=== PATIENT | male | born 1955 | race Caucasian/White ===

== ENCOUNTER 2016-10-17 03:18 | Observation (INO) | payer BC ==
--- NOTE | ~2016-10-17 | DS ---
Discharge Summary [address] [place]. [address] NAME: DONA PEARSON : 55 STATUS : DIS [place] PAT#: [id number] AGE: 61 ADM/REG DATE : 10/17/16 MR#: [id number] REPORT SERV DATE: 10/20/16 DICTATED BY: ERIN MENDOZA DATE: 10/19/16 REPORT STATUS : Draft TRANSCRIBED BY: MODL DATE: 10/19/16 ADMISSION DATE: 10/17/2016 DISCHARGE DATE: 10/19/2016 REASON FOR ADMISSION: Neutropenic fever. HPI: Please refer Dr. Lopez's history and physical dated 10/17/2016 for complete details on the patient's admission. The patient was admitted to the Hospitalist Service for management of neutropenic fever. HOSPITAL COURSE: The patient had an uncomplicated hospital course. He was admitted to the Hospitalist Service for neutropenic fever. The patient has known stage IV prostate cancer followed closely by Dr. Ketan Byrnes. He was started on chemotherapy for his first dose. He presented to the hospital with a neutropenic fever. He was started on broad-spectrum antibiotics including vancomycin, cefepime, along with IV fluids for his acute kidney injury. Blood cultures were obtained. There were no growth to date. Urinalysis was unremarkable. Chest x-ray did not reveal any pulmonary infection. Throughout the hospitalization, the patient remained nontoxic and was not ill appearing. He was back to his usual state. He had been ambulating and eating fine. On day three, his absolute neutrophil count had increased to as high as 530. He has been afebrile for about 30+ hours, and is not ill appearing. His hypotension had mostly resolved. He has had some normotensive episodes along with some normal low blood pressure. He has been ambulating without any symptoms. Denies any dizziness, lightheadedness. He has reached maximal hospitalization. He will be discharged today if okay by Dr. Ketan Byrnes to follow up with Dr. Byrnes on 10/30/2016 for his next round of chemotherapy. So far his neutropenic fever has not proven to be any concern for bacteria. The patient will be discharged in stable condition. DISCHARGE DIAGNOSES: 1. Neutropenic fever. 2. No sepsis. 3. Acute kidney injury secondary to dehydration, now resolved. 4. Stage IV prostate cancer, currently on chemotherapy followed by Dr. Ketan Byrnes. PROCEDURES: Include chest x-ray. DISCHARGE MEDICATIONS: Include vitamin B12, fish oil, Prilosec 20 mg daily, azilsartan/chlorthalidone 40/25 half tab daily. He is to hold this and restart in one week. Taxotere administered by Dr. Ketan Byrnes. FOLLOWUP: The patient will follow up Dr. Ketan Byrnes in 2 to 3 days for his next dose of Taxotere. DICTATED BY: Erin Mendoza MD Discharge Summary [address] [address] NAME: DONA PEARSON : 55 STATUS : DIS [place] PAT#: [id number] AGE: 61 ADM/REG DATE : 10/17/16 MR#: [id number] REPORT SERV DATE: 10/20/16 DICTATED BY: ERIN MENDOZA DATE: 10/19/16 REPORT STATUS : Draft TRANSCRIBED BY: MODTrent DATE: 10/19/16 RALPH/MARLY Erin Mendoza MD / [id number] CC: MD Librado Chavez M.D. Davey B. Daniel, M.D.
--- NOTE | ~2016-10-17 | HP ---
History And Physical [id number] [place]. [address] NAME: DONA CAI : 55 STATUS : ADM [place] PAT#: [id number] AGE: 61 ADM/REG DATE : 10/17/16 MR#: [id number] REPORT SERV DATE: 10/17/16 DICTATED BY: ARMAND MURGUIA DATE: 10/17/16 REPORT STATUS : Draft TRANSCRIBED BY: MODL DATE: 10/17/16 DATE OF ADMISSION: 10/17/2016 CHIEF COMPLAINT: Fever, chills. HISTORY OF PRESENT ILLNESS: This is a 61-year-old male with a history of prostate cancer diagnosed in April of 2016 and currently under chemotherapy under Dr. Ketan Byrnes, was fine yesterday in the morning but around midnight last night, he started having fever up to 102 degrees Fahrenheit with severe shaking chills. Since he is on chemotherapy and treatment, they decided to come to the emergency room right away. In the emergency room, indeed he had a neutropenic fever without any identifiable source of this infection. He met criteria for sepsis and upon arrival, was hypotensive as well but responding to fluid boluses. Hospitalist Service is asked to admit him for further evaluation and treatment. At the time of my evaluation, Mr. Cai was alert, awake, oriented to time, place, and person. He denies any chest pain, palpitations, or orthopnea. He had no cough, hemoptysis, night sweats, or weight loss. He did have fevers and chills as mentioned above. No history of falls or loss of consciousness. He did have nausea from the chemotherapy, but no diarrhea. No history of hematemesis, hematochezia, or hematuria. No other history of recent travel or exposures. PAST MEDICAL HISTORY: Significant for history of prostate cancer, currently on chemotherapy, under the care of Dr. Ketan Byrnes. He has essential hypertension as well. SOCIAL HISTORY: He does not smoke, has an occasional drink. Denied any recreational drugs. FAMILY HISTORY: Noncontributory. MEDICATIONS: At home were reviewed by me in the chart today and reordered by me. REVIEW OF SYSTEMS: As in history of present illness. All other systems were reviewed in detail and quite unremarkable. PHYSICAL EXAMINATION: GENERAL: This is a pleasant 61-year-old, not in any acute distress. HEENT: His head is atraumatic, normocephalic. He is alert, awake, oriented to time, place, and person. Pupils are equal, reacting to light and accommodating. External ocular muscles are intact. Membranes are moist and pink. Sclerae are nonicteric. NECK: Supple with no jugular venous distention, lymphadenopathy, or thyromegaly. LUNGS: Clear to auscultation with no wheezes, rubs, or crackles. HEART: Heart sounds are regular with no murmurs, rubs, or gallops. ABDOMEN: Soft, nontender. Bowel sounds are present. EXTREMITIES: Showed no cyanosis, clubbing, or edema. History And Physical [address] [address] NAME: DONA CAI : 55 STATUS : ADM [place] PAT#: [id number] AGE: 61 ADM/REG DATE : 10/17/16 MR#: [id number] REPORT SERV DATE: 10/17/16 DICTATED BY: ARMAND MURGUIA DATE: 10/17/16 REPORT STATUS : Draft TRANSCRIBED BY: MARLY DATE: 10/17/16 NEUROLOGIC: Grossly intact. No focal sensory or motor deficits. Higher functions appeared intact. VITAL SIGNS: His temperature today was 98.5, although according to the family it had gone up to 102 degrees Fahrenheit at home. His pulse was 105, respirations were 18 to 20 a minute, and blood pressure was 119/57 upon arrival. Oxygen saturations were 97%, breathing 2 L of oxygen via nasal cannula. LABORATORY DATA: Reviewed on the [facility] system showed a sodium of 135, potassium 4.4, chloride 100, and CO2 was 28, BUN was 58 with a creatinine of 1.92. This was 0.86 on 05/19/2011. We do not have any other values since. Blood glucose was 101, albumin was 3.2 today, and other liver numbers were within normal limits. Lactate is pending at this point. CBC showed a white blood cell count of 1800, hemoglobin was 13.5, hematocrit 39.9, and platelet count was 261,000. His absolute neutrophil count was 0.22. Urinalysis was grossly unremarkable. Films of the chest x-ray were reviewed by me on the PACS today and interpreted by me. Per my interpretation, no lobar consolidations or pleural effusions seen. There is normal bony architecture with no cardiomegaly. IMPRESSION: 1. Neutropenic fever. 2. Sepsis. 3. Acute kidney injury. 4. Hypotension. 5. Prostate cancer, currently on chemotherapy. PLAN: We will admit Mr. Cai to the Hospitalist Service with telemetry for a 24-hour observation period. We will obtain cultures, start him on empiric IV antibiotics. Check his procalcitonin, lactate, and cortisol levels as well. We will start him on aggressive volume resuscitation, repeat fluid boluses and monitor his pressures closely. He appears to be clinically stable otherwise. We will use antipyretics cautiously for fever, although he seems to be afebrile at this time. We will go ahead and consult Dr. Ketan Byrnes to see him in the morning as well. We will also consult Infectious Disease to evaluate him and offer recommendations. We will follow chemistry, CBC, and electrolytes in the morning and repeat them and replete as needed. He will be placed on SCDs. /MARLY Armand Murguia M.D. / [id number] CC: Librado Santana M.D.
[2016-10-17 03:53] LABS: BASOPHILS 0.6 %; BASOPHILS ABSOLUTE 0.01 10/3/uL (0.0-0.16); EOSINOPHILS 1.1 %; EOSINOPHILS ABSOLUTE 0.02 10/3/uL (0.0-0.53); HEMOGLOBIN 13.5 g/dL (13.6-17.8); IMMATURE GRANULOCYTES 0.6 %; IMMATURE GRANULOCYTES ABSOLUTE 0.01 10/3/uL (0.0-0.11); LYMPHOCYTES 61.1 %; MEAN CORPUS HGB CONC 34.6 g/dL (32.0-36.0); MEAN CORPUSCULAR HEMOGLOB 30.2 pg (26.0-34.0); MEAN CORPUSCULAR VOLUME 87.2 fL (80-100); MEAN PLATELET VOLUME 9.2 fL (9.2-13.0); MONOCYTES 24.4 %; MONOCYTES ABSOLUTE 0.44 10/3/uL (0.21-1.20); NEUTROPHILS 12.2 %; NEUTROPHILS ABSOLUTE 0.22 10/3/uL (2.02-8.40); PLATELET COUNT 261 10/3/uL (150-400); RBC DISTRIBUTION WIDTH 12.9 % (12.0-16.0); RED CELL COUNT 4.47 10/6/uL (4.7-6.1)
[2016-10-17 03:55] LABS: MANUAL DIFF NO %; WHITE BLOOD CELLS 1.8 10/3/uL (4.5-10.5)
[2016-10-17 04:08] LABS: ALBUMIN 3.2 G/DL (3.5-5.0); ALKALINE PHOSPHATASE 67 U/L (45-117); BUN (BLOOD UREA NITROGEN) 38 MG/DL (6-23); CALCIUM, SERUM 8.4 MG/DL (8.5-10.4); CHLORIDE, SERUM 100 MMOL/L (96-112); CO2 (CARBON DIOXIDE) 28 MMOL/L (24-34); GFR AFRICAN AMERICAN 43 ML/MIN (>=60); GFR NON AFRICAN AMERICAN 37 ML/MIN (>=60); GLOBULIN 3.3 G/DL (2.5-4.1); GLUCOSE, SERUM 101 MG/DL (60-99); POTASSIUM, SERUM 4.4 MMOL/L (3.5-5.3); SGOT(AST) 14 U/L (5-40); SGPT(ALT) 25 U/L (5-65); SODIUM, SERUM 135 MMOL/L (135-148); TOTAL BILIRUBIN 0.9 MG/DL (0-1.2); TOTAL PROTEIN 6.5 G/DL (6.0-8.5)
[2016-10-17 04:08] LABS: ASCORBIC ACID (UR NOT ORDER) NEG (NEG); BILIRUBIN, URINE NEGATIVE (NEG); ER URINALYSIS TAT 0 Hrs 19 Mins; KETONE, URINE NEGATIVE (NEG); LEUKOCYTE ESTERASE(NOT OR NEG (NEG); NITRITE (URINE) NEG (NEG); WBC (NOT ORDERED) (RFLEX) 4 (0-5)
[2016-10-17 04:09] LABS: CREATININE 1.92 MG/DL (0.70-1.30)
[2016-10-17 04:16] LABS: BAND NEUTROPHILS 6 %; EOSINOPHILS 1 %; EOSINOPHILS ABSOLUTE (CALC) 0.02 10/3/uL (0.0-0.53); ER DIFF TAT 0 Hrs 27 Mins; LYMPHOCYTES 67 %; LYMPHOCYTES ABSOLUTE (CALC) 1.21 10/3/uL (0.67-4.30); MONOCYTES 16 %; MONOCYTES ABSOLUTE (CALC) 0.29 10/3/uL (0.21-1.20); NEUTROPHILS ABSOLUTE (CALC) 0.29 10/3/uL (2.02-8.40); PLATELET ESTIMATE ADQ (ADEQUATE); RBC MORPHOLOGY NORM (NORMAL); SEGMENTED NEUTROPHIL (0) 10 %; TOTAL NUCLEATED CELLS 100
[2016-10-17 04:23] LABS: PATH REVIEW YES
[2016-10-17] MEDS ORDERED: PRILO PO (05:56)
[2016-10-17] MEDS ORDERED: EDARBYCLOR 40-1 EAC1 PO (05:58)
[2016-10-17] MEDS ORDERED: FISH OIL1200 MG PO (05:58)
[2016-10-17] MEDS ORDERED: CYANO1000T PO (05:59)
[2016-10-17 06:20] LABS: LACTATE 1.2 MMOL/L (0.3-2.4)
[2016-10-17 07:51] LABS: PROCALCITONIN 0.09 ng/mL (<0.5)
[2016-10-17 10:08] LABS: PHOSPHORUS, SERUM 2.1 MG/DL (2.5-4.5)
[2016-10-17 10:38] LABS: PROCALCITONIN 0.05 ng/mL (<0.5)
[2016-10-17 11:41] LABS: PATH REVIEW SEE PATHOLOGY REPORT
[2016-10-18 06:02] LABS: HEMATOCRIT 35.4 % (40.0-51.0); HEMOGLOBIN 12.5 g/dL (13.6-17.8); MEAN CORPUS HGB CONC 35.3 g/dL (32.0-36.0); MEAN CORPUSCULAR HEMOGLOB 30.6 pg (26.0-34.0); MEAN CORPUSCULAR VOLUME 86.6 fL (80-100); MEAN PLATELET VOLUME 8.9 fL (9.2-13.0); RBC DISTRIBUTION WIDTH 12.9 % (12.0-16.0); RED CELL COUNT 4.09 10/6/uL (4.7-6.1)
[2016-10-18 06:04] LABS: MANUAL DIFF YES %; PLATELET COUNT 150 10/3/uL (150-400); WHITE BLOOD CELLS 2.3 10/3/uL (4.5-10.5)
[2016-10-18 06:06] LABS: BUN (BLOOD UREA NITROGEN) 18 MG/DL (6-23); CALCIUM, SERUM 7.8 MG/DL (8.5-10.4); CHLORIDE, SERUM 106 MMOL/L (96-112); CO2 (CARBON DIOXIDE) 21 MMOL/L (24-34); CREATININE 1.14 MG/DL (0.70-1.30); GFR AFRICAN AMERICAN 80 ML/MIN (>=60); GFR NON AFRICAN AMERICAN 69 ML/MIN (>=60); GLUCOSE, SERUM 91 MG/DL (60-99); POTASSIUM, SERUM 4.6 MMOL/L (3.5-5.3); SODIUM, SERUM 137 MMOL/L (135-148)
[2016-10-18 06:57] LABS: BAND NEUTROPHILS 2 %; LYMPHOCYTES 60 %; LYMPHOCYTES ABSOLUTE (CALC) 1.38 10/3/uL (0.67-4.30); MONOCYTES 32 %; MONOCYTES ABSOLUTE (CALC) 0.74 10/3/uL (0.21-1.20); NEUTROPHILS ABSOLUTE (CALC) 0.18 10/3/uL (2.02-8.40); PLATELET ESTIMATE ADQ (ADEQUATE); RBC MORPHOLOGY NORM (NORMAL); SEGMENTED NEUTROPHIL (0) 6 %; TOTAL NUCLEATED CELLS 100
[2016-10-19 05:43] LABS: HEMATOCRIT 36.4 % (40.0-51.0); HEMOGLOBIN 12.7 g/dL (13.6-17.8); MEAN CORPUS HGB CONC 34.9 g/dL (32.0-36.0); MEAN CORPUSCULAR HEMOGLOB 30.3 pg (26.0-34.0); MEAN CORPUSCULAR VOLUME 86.9 fL (80-100); MEAN PLATELET VOLUME 8.5 fL (9.2-13.0); RBC DISTRIBUTION WIDTH 12.7 % (12.0-16.0); RED CELL COUNT 4.19 10/6/uL (4.7-6.1)
[2016-10-19 05:45] LABS: MANUAL DIFF YES %; PLATELET COUNT 249 10/3/uL (150-400); WHITE BLOOD CELLS 2.4 10/3/uL (4.5-10.5)
[2016-10-19 06:04] LABS: CALCIUM, SERUM 8.4 MG/DL (8.5-10.4); CHLORIDE, SERUM 104 MMOL/L (96-112); CREATININE 1.14 MG/DL (0.70-1.30); GFR AFRICAN AMERICAN 80 ML/MIN (>=60); GFR NON AFRICAN AMERICAN 69 ML/MIN (>=60); GLUCOSE, SERUM 106 MG/DL (60-99); PHOSPHORUS, SERUM 1.9 MG/DL (2.5-4.5); POTASSIUM, SERUM 4.3 MMOL/L (3.5-5.3); SODIUM, SERUM 136 MMOL/L (135-148)
[2016-10-19 06:05] LABS: BUN (BLOOD UREA NITROGEN) 12 MG/DL (6-23); CO2 (CARBON DIOXIDE) 27 MMOL/L (24-34)
[2016-10-19 07:25] LABS: BAND NEUTROPHILS 4 %; LYMPHOCYTES 50 %; MONOCYTES 28 %; MONOCYTES ABSOLUTE (CALC) 0.67 10/3/uL (0.21-1.20); NEUTROPHILS ABSOLUTE (CALC) 0.53 10/3/uL (2.02-8.40); SEGMENTED NEUTROPHIL (0) 18 %; TOTAL NUCLEATED CELLS 100
[2016-10-19 07:26] LABS: PLATELET ESTIMATE ADQ (ADEQUATE); RBC MORPHOLOGY NORM (NORMAL)
[2016-10-19] MEDS ORDERED: LEVAQUIN750 MG PO (09:52)
== END 2016-10-19 12:31 | disposition home or self-care (01) ==
LOC: ER 03:18 → 7NO 06:20 → 6NO 07:58
PROVIDERS: Hospitalist; Internal Medicine; Specialist
DX: D70.9 Neutropenia, unspecified (principal); R50.81 Fever presenting with conditions classified elsewhere; A41.9 Sepsis, unspecified organism; R65.20 Severe sepsis without septic shock; N17.9 Acute kidney failure, unspecified; I95.9 Hypotension, unspecified; C61 Malignant neoplasm of prostate; Z79.899 Other long term (current) drug therapy
CPT/HCPCS: 71020; 80048; 80053; 81001; 82533; 83605; 83735; 84100; 84145; 85025; 87040; 96365; 96372; 96375; 96376; 99285; A9270-GY; G0378; J0692; J3370